=== PATIENT | male | born 1990 | race Caucasian/White ===

== ENCOUNTER 2016-09-26 00:08 | Emergency (ER) | payer SELFPAY ==
[~2016-09-26] VITALS: Ht 177.8 cm; Wt 66.0 kg
[2016-09-26] MEDS ORDERED: KETOROLAC 60MG/2ML VIAL IM ONE (01:00)
[2016-09-26 01:10] VITALS: BP 127/81
== END 2016-09-26 01:59 | disposition home or self-care (01) ==
LOC: ER 00:08
DX: S20.219A Contusion of unspecified front wall of thorax, initial encounter (principal); F17.210 Nicotine dependence, cigarettes, uncomplicated; Z88.0 Allergy status to penicillin; Z88.8 Allergy status to other drugs, medicaments and biological substances; V89.2XXA Person injured in unspecified motor-vehicle accident, traffic, initial encounter; Y93.89 Activity, other specified; Y92.89 Other specified places as the place of occurrence of the external cause; Y99.8 Other external cause status
CPT/HCPCS: 71020; 73562; 93005; 96372; 99284; J1885

== ENCOUNTER 2019-04-06 20:05 | Emergency (ER) | payer MEDICAID ==
[~2019-04-06] VITALS: Ht 180.3 cm; Wt 75.0 kg
[2019-04-07] MEDS ORDERED: SODIUM CHLORIDE 0.9% 1,000 ML IV ONE (00:24)
[2019-04-07] MEDS ORDERED: MORPHINE SULFATE 4 MG/ML CPJ (NOT FOR IM USE) IV STA (00:24)
[2019-04-07] MEDS ORDERED: ONDANSETRON HCL 4MG/2ML INJ IV STA (00:24)
[2019-04-07 01:22] LABS: BASOPHILS % 0.9 % (0.0-2.0); EOSINOPHILS % 1.4 % (0.0-5.0); HEMATOCRIT. 41.4 % (42.0-52.0); HEMOGLOBIN. 14.2 g/dL (14.0-18.0); LYMPHOCYTES % 37.7 % (20.0-50.0); MEAN CORPUSCULAR HEMOGLOBIN 31.2 pg (28.0-32.0); MEAN PLATELET VOLUME 7.6 fl (7.4-10.4); MONOCYTES % 7.8 % (2.0-8.0); NEUTROPHILS % 52.2 % (40.0-76.0); PLATELET 204 x1000/uL (130-400); RED BLOOD CELL COUNT 4.55 mill/uL (4.7-6.1); RED CELL DISTRIBUTION WIDTH 13.2 % (11.6-14.6)
[2019-04-07 01:24] LABS: CHLORIDE 108 mEq/L (98-107)
[2019-04-07] MEDS ORDERED: IOHEXOL-300 100 ML BOTTLE ONE (05:15)
[2019-04-07 07:24] LABS: CLARITY URINE CLEAR (CLEAR); COLOR URINE YELLOW (YELLOW); KETONES URINE NEGATIVE (NEGATIVE); LEUKOCYTE ESTERASE URINE NEGATIVE (NEGATIVE); NITRITE URINE NEGATIVE (NEGATIVE); OCCULT BLOOD URINE NEGATIVE (NEGATIVE); PROTEIN URINE NEGATIVE (NEGATIVE); SPECIFIC GRAVITY URINE 1.029 (1.005-1.030); UROBILINOGEN URINE 0.2 E.U./dL (0.2-1.0)
[2019-04-07 11:03] VITALS: BP 110/74
== END 2019-04-07 11:05 | disposition home or self-care (01) ==
LOC: ER 20:05 → EDBEDREQ 04-07 06:30 → EDBEDREQTM 04-07 06:30 → ER 04-07 11:05 → CANBEDREQ 04-07 11:06
DX: R10.32 Left lower quadrant pain (principal); M54.5 Low back pain; Z88.0 Allergy status to penicillin
CPT/HCPCS: 36415; 71045; 74177; 80053; 81003; 83605; 83690; 85025; 96374; 96375; 99284; J2270; J2405; J7030; Q9967

== ENCOUNTER 2021-06-02 18:39 | Emergency (ER) | payer MEDICAID ==
[~2021-06-02] VITALS: Ht 180.3 cm; Wt 74.0 kg
[2021-06-02] MEDS ORDERED: ACETAMINOPHEN 325MG TABLET PO ONE (21:15)
[2021-06-02] MEDS ORDERED: LIDOCAINE 5% PATCH TOP SCH (21:15)
[2021-06-02] MEDS ORDERED: KETOROLAC 60MG/2ML VIAL IM ONE (21:15)
[2021-06-02] MEDS ORDERED: TOPUD PO (22:56)
[2021-06-02] MEDS ORDERED: IBUP-2028 MT (22:56)
[2021-06-02] MEDS ORDERED: LIDO1ADH23 TP (22:57)
[2021-06-02] MEDS ORDERED: METH-653 MT (22:57)
[2021-06-02 23:20] VITALS: BP 134/69
== END 2021-06-02 23:21 | disposition home or self-care (01) ==
LOC: ER 18:39
DX: S13.4XXA Sprain of ligaments of cervical spine, initial encounter (principal); M25.532 Pain in left wrist; V43.52XA Car driver injured in collision with other type car in traffic accident, initial encounter; Y93.89 Activity, other specified; Y92.410 Unspecified street and highway as the place of occurrence of the external cause; Z88.0 Allergy status to penicillin
CPT/HCPCS: 29125; 71046; 72040; 72100; 72170; 73090; 73130; 96372; 99284; J1885

== ENCOUNTER 2023-01-13 19:22 | Emergency (ER) | payer MEDICAID ==
[~2023-01-13] VITALS: Ht 180.3 cm; Wt 76.6 kg
[~2023-01-13 19:22] MED LIST: IBUP-2028 MT; LIDO1ADH23 TP; METH-653 MT; TOPUD PO
[2023-01-13 19:31] VITALS: BP 123/66; PULSE 87; RESP 16; TEMP 98.4; O2SAT 100
[2023-01-13] MEDS ORDERED: KETOROLAC 30MG/ML VIAL IM ONE (20:00)
[2023-01-13] MEDS ORDERED: NAPR-1176 MT (21:01)
== END 2023-01-13 21:39 | disposition home or self-care (01) ==
LOC: ER 19:22
DX: S43.401A Unspecified sprain of right shoulder joint, initial encounter (principal); X58.XXXA Exposure to other specified factors, initial encounter; Y93.89 Activity, other specified; Y92.89 Other specified places as the place of occurrence of the external cause; Y99.8 Other external cause status
CPT/HCPCS: 99284; 73000; 73030; 96372; J1885; A4565

== ENCOUNTER 2023-03-13 22:20 | Emergency (ER) | payer MEDICAID ==
[~2023-03-13] VITALS: Ht 180.3 cm; Wt 74.1 kg
[~2023-03-13 22:20] MED LIST changes: +NAPR-1176 MT
[2023-03-13 22:25] VITALS: TEMP 98; O2SAT 98
[2023-03-14] MEDS ORDERED: ACETAMINOPHEN 325MG TABLET PO ONE (02:45)
[2023-03-14] MEDS ORDERED: METOCLOPRAMIDE HCL 10MG/2ML VIAL IM ONE (02:45)
[2023-03-14] MEDS ORDERED: KETOROLAC 60MG/2ML VIAL IM ONE (02:45)
[2023-03-14] MEDS ORDERED: NAPR-1074 MT (03:50)
[2023-03-14] MEDS ORDERED: METO-293 MT (03:50)
[2023-03-14 03:54] VITALS: BP 122/80; PULSE 80; RESP 16
== END 2023-03-14 04:08 | disposition home or self-care (01) ==
LOC: ER 22:20
DX: G43.909 Migraine, unspecified, not intractable, without status migrainosus (principal); Z79.899 Other long term (current) drug therapy
CPT/HCPCS: 99284; 96372; J1885; J2765

== ENCOUNTER 2023-09-18 23:11 | Inpatient (IN) | payer MEDICAID ==
[~2023-09-18] VITALS: Ht 180.3 cm; Wt 74.0 kg
[~2023-09-18 23:11] MED LIST changes: +METO-293 MT; +NAPR-1074 MT
[2023-09-18 23:28] VITALS: O2SAT 99
[2023-09-19 00:28] LABS: BASOPHILS % 0.8 % (0.0-2.0); HEMATOCRIT. 44.7 % (42.0-52.0); HEMOGLOBIN. 15.5 g/dL (14.0-18.0); LYMPHOCYTES % 20.1 % (20.0-50.0); MEAN CORPUSCULAR HEMOGLOBIN 31.8 pg (28.0-32.0); MEAN CORPUSCULAR HGB CONC 34.7 g/dL (31.0-37.0); MEAN CORPUSCULAR VOLUME 91.7 fL (80.0-94.0); MEAN PLATELET VOLUME 7.6 fl (7.4-10.4); MONOCYTES % 7.5 % (2.0-8.0); NEUTROPHILS % 70.6 % (40.0-76.0); PLATELET 258 x1000/uL (130-400); RED BLOOD CELL COUNT 4.87 mill/uL (4.7-6.1); RED CELL DISTRIBUTION WIDTH 12.9 % (11.6-14.6)
[2023-09-19 00:30] LABS: CLARITY URINE CLEAR (CLEAR); COLOR URINE YELLOW (YELLOW); GLUCOSE URINE NEGATIVE (NEGATIVE); KETONES URINE NEGATIVE (NEGATIVE); LEUKOCYTE ESTERASE URINE NEGATIVE (NEGATIVE); NITRITE URINE NEGATIVE (NEGATIVE); OCCULT BLOOD URINE NEGATIVE (NEGATIVE); PH URINE 8.5 (4.5-8.0); PROTEIN URINE NEGATIVE (NEGATIVE); SPECIFIC GRAVITY URINE 1.021 (1.005-1.030); UROBILINOGEN URINE 0.2 E.U./dL (0.2-1.0)
[2023-09-19 00:34] LABS: CHLORIDE 105 mEq/L (98-107); POTASSIUM 3.1 mEq/L (3.5-5.1); SODIUM 138 mEq/L (136-145)
[2023-09-19 00:35] LABS: CALCIUM 9.6 mg/dL (8.7-10.4); CARBON DIOXIDE 24 mEq/L (21-32)
[2023-09-19 00:39] LABS: *AMPHETAMINES SCREEN URINE NEGATIVE (NEGATIVE); *BARBITURATES SCREEN URINE NEGATIVE (NEGATIVE); *BENZODIAZEPINES SCREEN URINE NEGATIVE (NEGATIVE); *COCAINE SCREEN URINE NEGATIVE (NEGATIVE); D-DIMER 0.27 mg/L FEU (<0.50); INR 0.9; METHADONE URINE SCREEN NEGATIVE (NEGATIVE); OPIATES URINE SCREEN NEGATIVE (NEGATIVE); PHENCYCLIDINE URINE SCREEN NEGATIVE (NEGATIVE); PROTHROMBIN TIME 10.5 sec (9.6-11.0)
[2023-09-19 00:40] LABS: CANNABINOID URINE SCREEN PRESUMPTIVE POSITIVE (NEGATIVE); CREATININE 1.1 mg/dL (0.6-1.3); ECSTASY MDMA SCREEN URINE NEGATIVE (NEGATIVE); GLUCOSE 63 mg/dL (70-105); UREA NITROGEN BLOOD 14 mg/dL (9-23)
[2023-09-19 00:42] LABS: ETHANOL BLOOD < 10 mg/dL (<10); TROPONIN I HIGH SENSITIVITY < 4 ng/L (3.0-53)
[2023-09-19] MEDS: ASPIRIN 81MG TABLET PO ONE (00:53)
[2023-09-19 02:50] VITALS: BP 114/77; PULSE 65; RESP 18; TEMP 97.7
[2023-09-19 04:00] VITALS: BP 102/53; PULSE 51; RESP 19; TEMP 97.8
[2023-09-19] MEDS ORDERED: IOHEXOL-350 100 ML BOTTLE ONE (06:40)
[2023-09-19] MEDS ORDERED: ONDANSETRON HCL 4MG/2ML INJ IV PRN (07:30)
[2023-09-19] MEDS ORDERED: HYDROCODONE/ACETAMINOPHEN 5/325MG TABLET PO PRN (07:30)
[2023-09-19] MEDS ORDERED: MAGNESIUM/ALUMINUM HYDROXIDE/SIMETHICONE 30ML UDC PO PRN (07:30)
[2023-09-19] MEDS ORDERED: NALOXONE HCL 0.4MG/ML VIAL IV PRN (07:30)
[2023-09-19] MEDS ORDERED: CLONIDINE 0.1MG TABLET PO PRN (07:30)
[2023-09-19] MEDS ORDERED: DOCUSATE SODIUM 100MG CAPSULE PO PRN (07:30)
[2023-09-19] MEDS ORDERED: ACETAMINOPHEN 325MG TABLET PO PRN ×2 (07:30)
[2023-09-19] MEDS ORDERED: GUAIFENESIN 200MG/10ML SUGAR FREE UDC PO PRN (07:30)
[2023-09-19] MEDS ORDERED: IPRATROPIUM/ALBUTEROL 0.5-3(2.5)MG/3ML NEB HHN PRN (07:30)
[2023-09-19 08:00] VITALS: BP 103/63; RESP 20; TEMP 98.7
[2023-09-19] MEDS: POTASSIUM CHLORIDE 20MEQ TABLET SR PO NR (08:30)
[2023-09-19 10:51] LABS: PHOSPHORUS 0.4 mg/dL (2.5-4.9)
[2023-09-19 12:00] VITALS: BP 110/65; PULSE 59; RESP 20; TEMP 98.4
[2023-09-19] MEDS: SODIUM PHOSPHATE 20 MMOL in DEXT 5% WATER 243.3333 ML IV SCH ×2 (13:42→18:27)
[2023-09-19 16:02] VITALS: BP 106/65; PULSE 60; RESP 18; TEMP 96.3
[2023-09-19 16:21] LABS: CREATINE KINASE 63 IU/L (46-171)
[2023-09-19 16:23] LABS: TROPONIN I HIGH SENSITIVITY < 4 ng/L (3.0-53)
[2023-09-19] MEDS ORDERED: LEVETIRACETAM 500 MG in SODIUM CHLORIDE 0.9% 100 ML IV SCH (18:15)
[2023-09-19] MEDS ORDERED: LEVETIRACETAM 500MG PREMIX 100 ML IV SCH ×2 (19:00→21:00)
[2023-09-19 20:00] VITALS: BP 119/72; PULSE 65; RESP 19; TEMP 98.8
[2023-09-19] MEDS: ENOXAPARIN 40MG/0.4ML SYR SUBCUT SCH (21:00)
[2023-09-19] MEDS: LEVETIRACETAM 500MG PREMIX 100 ML IV SCH (21:00)
[2023-09-19] MEDS: ATORVASTATIN CALCIUM 40MG TABLET PO SCH (21:20)
[2023-09-20] VITALS: BP 112/70; PULSE 70; RESP 18; TEMP 97.6
[2023-09-20 00:14] LABS: CREATINE KINASE 65 IU/L (46-171)
[2023-09-20 00:17] LABS: TROPONIN I HIGH SENSITIVITY < 4 ng/L (3.0-53)
[2023-09-20 05:58] LABS: BASOPHILS % 0.9 % (0.0-2.0); EOSINOPHILS % 1.9 % (0.0-5.0); HEMATOCRIT. 45.8 % (42.0-52.0); HEMOGLOBIN. 15.7 g/dL (14.0-18.0); LYMPHOCYTES % 30.1 % (20.0-50.0); MEAN CORPUSCULAR HEMOGLOBIN 31.4 pg (28.0-32.0); MEAN CORPUSCULAR HGB CONC 34.4 g/dL (31.0-37.0); MEAN CORPUSCULAR VOLUME 91.3 fL (80.0-94.0); MEAN PLATELET VOLUME 7.7 fl (7.4-10.4); NEUTROPHILS % 58.1 % (40.0-76.0); PLATELET 230 x1000/uL (130-400); RED BLOOD CELL COUNT 5.01 mill/uL (4.7-6.1); RED CELL DISTRIBUTION WIDTH 13.2 % (11.6-14.6); WHITE BLOOD COUNT 7.2 x1000/uL (4.5-11.0)
[2023-09-20 06:09] LABS: CHLORIDE 105 mEq/L (98-107); POTASSIUM 3.9 mEq/L (3.5-5.1); SODIUM 141 mEq/L (136-145)
[2023-09-20 06:10] LABS: CALCIUM 9.8 mg/dL (8.7-10.4); CARBON DIOXIDE 29 mEq/L (21-32)
[2023-09-20 06:15] LABS: CREATININE 1.1 mg/dL (0.6-1.3); GLUCOSE 77 mg/dL (70-105); TRIGLYCERIDE 82 mg/dL (0-150); UREA NITROGEN BLOOD 11 mg/dL (9-23)
[2023-09-20 06:16] LABS: LDL CHOLESTEROL 119 mg/dL (5-100)
[2023-09-20 06:17] LABS: ALANINE AMINOTRANSFERASE 12 IU/L (10-49); ALBUMIN 4.4 g/dL (3.2-4.8); ASPARTATE AMINOTRANSFERASE 17 IU/L (<34); BILIRUBIN TOTAL 0.9 mg/dL (0.1-1.0); CHOLESTEROL 173 mg/dL (<200); HDL CHOLESTEROL 51 mg/dL (>55)
[2023-09-20 06:18] LABS: PROTEIN TOTAL 6.9 g/dL (6.0-8.3); T4 FREE 1.24 ng/dL (0.89-1.76)
[2023-09-20 06:19] LABS: THYROID STIMULATING HORMONE 1.87 uIU/mL (0.55-4.78)
[2023-09-20] MEDS: ASPIRIN 81MG EC TABLET PO SCH (08:47)
[2023-09-20 12:00] VITALS: BP_SYST 105; BP_SYST 121; BP_DIAS 52; BP_DIAS 61; PULSE 51; PULSE 59; RESP 20; TEMP 97.6; TEMP 98.8
[2023-09-20] MEDS ORDERED: KEPP500 MT (14:08)
== END 2023-09-20 15:30 | disposition home or self-care (01) | DRG 53 ==
LOC: ER 23:11 → 7WST 09-19 01:17
PROVIDERS: ADMIT Preventive Medicine Clinical Informatics; ATTEND Preventive Medicine Clinical Informatics
DX: G40.89 Other seizures (principal); E83.39 Other disorders of phosphorus metabolism; G45.9 Transient cerebral ischemic attack, unspecified; E87.6 Hypokalemia; F17.210 Nicotine dependence, cigarettes, uncomplicated; Z86.73 Personal history of transient ischemic attack (TIA), and cerebral infarction without residual deficits; Z87.828 Personal history of other (healed) physical injury and trauma; Z88.0 Allergy status to penicillin; Z79.899 Other long term (current) drug therapy
CPT/HCPCS: 36415; 70496; 70498; 70551; 71045; 80048; 80053; 80061; 80305; 80320; 81003; 82550; 82962; 83735; 84100; 84439; 84443; 84484; 85025; 85379; 93005; 93306; 99291; J1650; J1953; J3490; J7060; Q9967; G0480